=== PATIENT | male | born 1945 | race Caucasian/White ===

== ENCOUNTER 2020-02-12 09:50 | Outpatient (CLI) | payer MEDICARE ==
[2020-02-12 12:32] LABS: BASOPHILS % (AUTO) 0.6 % (0.0-2.0); EOSINOPHILS % (AUTO) 1.2 % (0.0-6.0); HEMATOCRIT 45 % (39-51); HEMOGLOBIN 15.1 g/dL (13.5-17.5); LYMPHOCYTES # (AUTO) 1.3 /CMM (0.8-4.8); LYMPHOCYTES % (AUTO) 23.3 % (20.0-44.0); MEAN CORPUSCULAR HGB CONC 34 g/dl (31.0-36.0); MEAN CORPUSCULAR VOLUME 97 fL (80-96); MONOCYTES # (AUTO) 0.8 /CMM (0.1-1.30); MONOCYTES % (AUTO) 13.7 % (2.0-12.0); NEUTROPHILS # (AUTO) 3.4 /CMM (1.8-8.9); NEUTROPHILS % (AUTO) 61.2 % (43.0-81.0); PLATELET COUNT (AUTO) 207 /CMM (150-450); RED BLOOD CELL COUNT(AUTO) 4.62 MIL/uL (4.5-6.0); WHITE BLOOD COUNT (AUTO) 5.6 K/uL (4.3-11.0)
[2020-02-12 12:51] LABS: APPEARANCE,URINE CLEAR (CLEAR); BILIRUBIN,URINE NEGATIVE (NEGATIVE); BLOOD, URINE NEGATIVE Ery/uL (NEGATIVE); COLOR,URINE YELLOW (YELLOW); KETONES,URINE NEGATIVE (NEGATIVE); LEUKOCYTE ESTERASE ,URINE NEGATIVE (NEGATIVE); NITRITE, URINE NEGATIVE (NEGATIVE); PH,URINE 5.5 (5.0-8.0); PROTEIN,URINE NEGATIVE (NEGATIVE); UGLUCOSE NEGATIVE (NEGATIVE); UROBILINOGEN,URINE 0.2 EU/dL (0.2)
[2020-02-12 12:55] LABS: FREE T4 (FREE THYROXINE) 0.98 ng/dL (0.76-1.46); PROSTATE SPECIFIC ANTIGEN SCR 1.8 ng/mL (0.00-4.00); THYROID STIMULATING HORMONE 1.171 uIU/mL (0.358-3.74)
[2020-02-12 13:14] LABS: ALBUMIN 3.9 g/dL (3.4-5.0); BILIRUBIN,TOTAL 0.5 mg/dL (0.2-1.0); CALCIUM, SERUM 9.1 mg/dL (8.5-10.1); POTASSIUM 3.8 mmol/L (3.5-5.1)
== END 2020-02-12 23:59 | disposition home or self-care (01) ==
LOC: MSC 09:50
PROVIDERS: ATTEND Internal Medicine
DX: M21.611 Bunion of right foot (principal); I10 Essential (primary) hypertension; F32.9 Major depressive disorder, single episode, unspecified; E78.5 Hyperlipidemia, unspecified; M19.90 Unspecified osteoarthritis, unspecified site; J30.2 Other seasonal allergic rhinitis; R32 Unspecified urinary incontinence; Z86.19 Personal history of other infectious and parasitic diseases; Z79.899 Other long term (current) drug therapy
CPT/HCPCS: 36415; 80053; 80061; 81001; 84153; 84439; 84443; 85025; G0463; 81000-TC

== ENCOUNTER 2020-05-13 10:55 | Outpatient (CLI) | payer MEDICARE | END 2020-05-13 23:59 | disposition home or self-care (01) | LOC: MSC 10:55 | PROVIDERS: ATTEND Internal Medicine | DX: R32 Unspecified urinary incontinence (principal); M21.611 Bunion of right foot; F32.9 Major depressive disorder, single episode, unspecified; I10 Essential (primary) hypertension; E78.5 Hyperlipidemia, unspecified; M19.90 Unspecified osteoarthritis, unspecified site; J30.2 Other seasonal allergic rhinitis; I00 Rheumatic fever without heart involvement ==

== ENCOUNTER 2020-08-28 13:02 | Outpatient (CLI) | payer MEDICARE, OTHER ==
[2020-08-28 15:01] LABS: BASOPHILS % (AUTO) 0.7 % (0.0-2.0); EOSINOPHILS % (AUTO) 1.4 % (0.0-6.0); HEMATOCRIT 43 % (39-51); HEMOGLOBIN 14.5 g/dL (13.5-17.5); LYMPHOCYTES # (AUTO) 1.4 /CMM (0.8-4.8); LYMPHOCYTES % (AUTO) 22.6 % (20.0-44.0); MEAN CORPUSCULAR HGB CONC 34 g/dl (31.0-36.0); MEAN CORPUSCULAR VOLUME 98 fL (80-96); MONOCYTES # (AUTO) 0.7 /CMM (0.1-1.30); MONOCYTES % (AUTO) 11.4 % (2.0-12.0); NEUTROPHILS # (AUTO) 3.9 /CMM (1.8-8.9); NEUTROPHILS % (AUTO) 63.9 % (43.0-81.0); PLATELET COUNT (AUTO) 240 /CMM (150-450); WHITE BLOOD COUNT (AUTO) 6.1 K/uL (4.3-11.0)
[2020-08-28 15:20] LABS: BILIRUBIN,URINE NEGATIVE (NEGATIVE); COLOR,URINE YELLOW (YELLOW); LEUKOCYTE ESTERASE ,URINE NEGATIVE (NEGATIVE); NITRITE, URINE NEGATIVE (NEGATIVE); PH,URINE 5.5 (5.0-8.0); PROTEIN,URINE NEGATIVE (NEGATIVE); UGLUCOSE NEGATIVE (NEGATIVE)
[2020-08-28 15:32] LABS: THYROID STIMULATING HORMONE 1.273 uIU/mL (0.358-3.74)
[2020-08-28 15:45] LABS: ALBUMIN 3.8 g/dL (3.4-5.0); BILIRUBIN,TOTAL 0.4 mg/dL (0.2-1.0); CALCIUM, SERUM 9.3 mg/dL (8.5-10.1); CREATININE 1.1 mg/dL (0.6-1.3); MAGNESIUM 2.1 mg/dL (1.8-2.4); PHOSPHORUS 3.5 mg/dL (2.5-4.9); POTASSIUM 4.4 mmol/L (3.5-5.1); TOTAL PROTEIN, SERUM 6.9 g/dL (6.4-8.2)
[2020-08-28 15:48] LABS: BACTERIA,URINE None seen /HPF (None Seen); MUCUS,URINE Few /LPF (None Seen); RBC,URINE 0-2 /HPF (0-2); SQUAMOUS EPITHELIAL CELL,UR 0-2 /HPF (None Seen); WBC,URINE 0-2 /HPF (0-3)
== END 2020-08-28 23:59 | disposition home or self-care (01) ==
LOC: MSC 13:02
PROVIDERS: ATTEND Internal Medicine
DX: R32 Unspecified urinary incontinence (principal); F32.9 Major depressive disorder, single episode, unspecified; M19.90 Unspecified osteoarthritis, unspecified site; I10 Essential (primary) hypertension; M21.619 Bunion of unspecified foot; E78.5 Hyperlipidemia, unspecified; J30.2 Other seasonal allergic rhinitis; Z79.899 Other long term (current) drug therapy; Z88.8 Allergy status to other drugs, medicaments and biological substances
CPT/HCPCS: 36415; 80053; 80061; 81001; 82607; 83735; 84100; 84443; 85025; 85652; G0463

== ENCOUNTER → 2020-09-07 | Outpatient (CLI) | payer MEDICARE, OTHER | END | disposition home or self-care (01) | LOC: MSC 16:00 | PROVIDERS: ATTEND Internal Medicine | DX: M19.90 Unspecified osteoarthritis, unspecified site (principal); R32 Unspecified urinary incontinence; F32.9 Major depressive disorder, single episode, unspecified; I10 Essential (primary) hypertension; M21.619 Bunion of unspecified foot; E78.5 Hyperlipidemia, unspecified; J30.2 Other seasonal allergic rhinitis; I00 Rheumatic fever without heart involvement; Z88.7 Allergy status to serum and vaccine ==

== ENCOUNTER 2020-11-05 09:30 | Outpatient (CLI) | payer MEDICARE, OTHER | END 2020-11-05 23:59 | disposition home or self-care (01) | LOC: MSC 09:30 | PROVIDERS: ATTEND Internal Medicine | DX: R25.2 Cramp and spasm (principal); M19.90 Unspecified osteoarthritis, unspecified site; R32 Unspecified urinary incontinence; F32.9 Major depressive disorder, single episode, unspecified; I10 Essential (primary) hypertension; M21.619 Bunion of unspecified foot; E78.5 Hyperlipidemia, unspecified; J30.2 Other seasonal allergic rhinitis; I00 Rheumatic fever without heart involvement; Z79.899 Other long term (current) drug therapy ==

== ENCOUNTER 2021-01-04 13:14 | Outpatient (CLI) | payer MEDICARE, OTHER | END 2021-01-04 23:59 | disposition home or self-care (01) | LOC: MSC 13:14 | PROVIDERS: ATTEND Internal Medicine | DX: Z51.89 Encounter for other specified aftercare (principal); R32 Unspecified urinary incontinence; F32.9 Major depressive disorder, single episode, unspecified; M19.90 Unspecified osteoarthritis, unspecified site; M21.619 Bunion of unspecified foot; E78.5 Hyperlipidemia, unspecified; I10 Essential (primary) hypertension; I01.9 Acute rheumatic heart disease, unspecified ==

== ENCOUNTER 2021-03-02 10:20 | Outpatient (CLI) | payer MEDICARE, OTHER | END 2021-03-02 23:59 | disposition home or self-care (01) | LOC: MSC 10:20 | PROVIDERS: ATTEND Internal Medicine | DX: Z51.89 Encounter for other specified aftercare (principal); F32.9 Major depressive disorder, single episode, unspecified; M19.90 Unspecified osteoarthritis, unspecified site; I10 Essential (primary) hypertension; Z87.448 Personal history of other diseases of urinary system; M21.619 Bunion of unspecified foot; E78.5 Hyperlipidemia, unspecified; J30.2 Other seasonal allergic rhinitis; I00 Rheumatic fever without heart involvement ==

== ENCOUNTER 2021-06-03 10:24 | Outpatient (CLI) | payer MEDICARE, OTHER ==
[2021-06-03 12:48] LABS: URINE TOTAL PROTEIN 10.5 mg/dL (0-11.9)
[2021-06-03 12:50] LABS: BASOPHILS % (AUTO) 0.2 % (0.0-2.0); HEMATOCRIT 45 % (39-51); HEMOGLOBIN 15.1 g/dL (13.5-17.5); LYMPHOCYTES # (AUTO) 1.1 K/uL (0.8-4.8); LYMPHOCYTES % (AUTO) 17.8 % (20.0-44.0); MEAN CORPUSCULAR HGB CONC 34 g/dl (31.0-36.0); MEAN CORPUSCULAR VOLUME 100 fL (80-96); MONOCYTES # (AUTO) 0.7 K/uL (0.1-1.30); MONOCYTES % (AUTO) 10.3 % (2.0-12.0); NEUTROPHILS # (AUTO) 4.6 K/uL (1.8-8.9); NEUTROPHILS % (AUTO) 70.7 % (43.0-81.0); PLATELET COUNT (AUTO) 276 K/uL (150-450); RED BLOOD CELL COUNT(AUTO) 4.48 MIL/uL (4.5-6.0); WHITE BLOOD COUNT (AUTO) 6.4 K/uL (4.3-11.0)
[2021-06-03 13:05] LABS: CHOLESTEROL 173 mg/dL (<200); FREE T4 (FREE THYROXINE) 0.91 ng/dL (0.76-1.46); HDL CHOLESTEROL 57 mg/dL (40-60); LDL 91 mg/dL (0-99); PROSTATE SPECIFIC ANTIGEN SCR 2.59 ng/mL (0.00-4.00); THYROID STIMULATING HORMONE 1.452 uIU/mL (0.358-3.74); TRIGLYCERIDES 147 mg/dL (30-150)
[2021-06-03 13:13] LABS: ALANINE AMINOTRANSFERASE 47 U/L (12-78); ALBUMIN 4.2 g/dL (3.4-5.0); ALKALINE PHOSPHATASE 86 U/L (46-116); ASPARTATE AMINOTRANSFERASE 13 U/L (15-37); BILIRUBIN,TOTAL 0.4 mg/dL (0.2-1.0); CALCIUM, SERUM 9.7 mg/dL (8.5-10.1); CARBON DIOXIDE 30 mmol/L (21-32); CHLORIDE 104 mmol/L (98-107); CREATININE 1.2 mg/dL (0.6-1.3); GLUCOSE 69 mg/dL (74-106); MAGNESIUM 2.8 mg/dL (1.8-2.4); PHOSPHORUS 3.2 mg/dL (2.5-4.9); SODIUM SERUM 141 mmol/L (136-145); TOTAL PROTEIN, SERUM 7.5 g/dL (6.4-8.2); UREA NITROGEN, BLOOD 22 mg/dL (7-18)
[2021-06-03 13:18] LABS: BILIRUBIN,URINE NEGATIVE (NEGATIVE); COLOR,URINE YELLOW (YELLOW); LEUKOCYTE ESTERASE ,URINE NEGATIVE (NEGATIVE); NITRITE, URINE NEGATIVE (NEGATIVE); PH,URINE 7.5 (5.0-8.0); PROTEIN,URINE NEGATIVE (NEGATIVE); UGLUCOSE NEGATIVE (NEGATIVE); UROBILINOGEN,URINE 0.2 EU/dL (0.2)
[2021-06-03 15:36] LABS: C-REACTIVE PROTEIN < 0.2 mg/dL (0.0-0.9)
== END 2021-06-03 23:59 | disposition home or self-care (01) ==
LOC: MSC 10:24
PROVIDERS: ATTEND Internal Medicine
DX: Z51.89 Encounter for other specified aftercare (principal); F32.A Depression, unspecified; M19.90 Unspecified osteoarthritis, unspecified site; I10 Essential (primary) hypertension; M21.619 Bunion of unspecified foot; E78.5 Hyperlipidemia, unspecified; J30.2 Other seasonal allergic rhinitis; I00 Rheumatic fever without heart involvement; Z00.00 Encounter for general adult medical examination without abnormal findings; Z79.899 Other long term (current) drug therapy
CPT/HCPCS: 36415; 80053; 80061; 81003; 82043; 82306; 82570; 82607; 82746; 83036; 83735; 84100; 84153; 84155; 84439; 84443; 85025; 85652; 86140; G0463

== ENCOUNTER 2021-06-08 11:30 | Outpatient (CLI) | payer MEDICARE, OTHER | END 2021-06-08 23:59 | disposition home or self-care (01) | LOC: MSC 11:30 | PROVIDERS: ATTEND Internal Medicine | DX: E83.42 Hypomagnesemia (principal); F32.A Depression, unspecified; M19.90 Unspecified osteoarthritis, unspecified site; I10 Essential (primary) hypertension; M21.619 Bunion of unspecified foot; E78.5 Hyperlipidemia, unspecified; J30.2 Other seasonal allergic rhinitis; I00 Rheumatic fever without heart involvement ==

== ENCOUNTER → 2021-08-17 | Outpatient (CLI) | payer MEDICARE, OTHER | END | disposition home or self-care (01) | LOC: MSC 14:00 | PROVIDERS: ATTEND Internal Medicine | DX: Z51.89 Encounter for other specified aftercare (principal); Z20.822 Contact with and (suspected) exposure to COVID-19; Z91.81 History of falling; E83.42 Hypomagnesemia; F32.A Depression, unspecified; M19.90 Unspecified osteoarthritis, unspecified site; I10 Essential (primary) hypertension; M21.619 Bunion of unspecified foot; E78.5 Hyperlipidemia, unspecified; J30.2 Other seasonal allergic rhinitis; I00 Rheumatic fever without heart involvement ==

== ENCOUNTER 2021-09-16 11:17 | Outpatient (CLI) | payer MEDICARE, OTHER | END 2021-09-16 23:59 | disposition home or self-care (01) | LOC: MSC 11:17 | PROVIDERS: ATTEND Internal Medicine | DX: R63.4 Abnormal weight loss (principal); Z68.22 Body mass index [BMI] 22.0-22.9, adult; H40.9 Unspecified glaucoma; Z91.81 History of falling; E83.42 Hypomagnesemia; F32.A Depression, unspecified; M19.90 Unspecified osteoarthritis, unspecified site; I10 Essential (primary) hypertension; M21.619 Bunion of unspecified foot; E78.5 Hyperlipidemia, unspecified; J30.2 Other seasonal allergic rhinitis; I00 Rheumatic fever without heart involvement ==

== ENCOUNTER 2022-01-06 10:34 | Outpatient (CLI) | payer MEDICARE, OTHER | END 2022-01-06 23:59 | disposition home or self-care (01) | LOC: MSC 10:34 | PROVIDERS: ATTEND Internal Medicine | DX: R01.1 Cardiac murmur, unspecified (principal); H40.9 Unspecified glaucoma; E83.42 Hypomagnesemia; F32.A Depression, unspecified; M19.90 Unspecified osteoarthritis, unspecified site; I10 Essential (primary) hypertension; M21.619 Bunion of unspecified foot; E78.5 Hyperlipidemia, unspecified; J30.2 Other seasonal allergic rhinitis; I00 Rheumatic fever without heart involvement; Z91.81 History of falling ==

== ENCOUNTER 2022-01-25 14:00 | Outpatient (CLI) | payer MEDICARE, OTHER | END 2022-01-25 23:59 | disposition home or self-care (01) | LOC: MSC 14:00 | PROVIDERS: ATTEND Internal Medicine | DX: R01.1 Cardiac murmur, unspecified (principal); I10 Essential (primary) hypertension; H40.9 Unspecified glaucoma; E83.42 Hypomagnesemia; F32.A Depression, unspecified; M19.90 Unspecified osteoarthritis, unspecified site; M21.619 Bunion of unspecified foot; E78.5 Hyperlipidemia, unspecified; J30.2 Other seasonal allergic rhinitis; I00 Rheumatic fever without heart involvement ==

== ENCOUNTER 2022-04-14 10:29 | Outpatient (CLI) | payer MEDICARE, OTHER | END 2022-04-14 23:59 | disposition home or self-care (01) | LOC: MSC 10:29 | PROVIDERS: ATTEND Internal Medicine | DX: R01.1 Cardiac murmur, unspecified (principal); R04.0 Epistaxis; I10 Essential (primary) hypertension; H40.9 Unspecified glaucoma; E83.42 Hypomagnesemia; F32.A Depression, unspecified; M19.90 Unspecified osteoarthritis, unspecified site; M21.619 Bunion of unspecified foot; E78.5 Hyperlipidemia, unspecified; J30.2 Other seasonal allergic rhinitis; I00 Rheumatic fever without heart involvement ==

== ENCOUNTER → 2022-06-09 | Outpatient (CLI) | payer MEDICARE, OTHER | END | disposition home or self-care (01) | LOC: MSC 09:12 | PROVIDERS: ATTEND Internal Medicine | DX: Z09 Encounter for follow-up examination after completed treatment for conditions other than malignant neoplasm (principal); R01.1 Cardiac murmur, unspecified; I10 Essential (primary) hypertension; H40.9 Unspecified glaucoma; E83.42 Hypomagnesemia; F32.A Depression, unspecified; M19.90 Unspecified osteoarthritis, unspecified site; M21.619 Bunion of unspecified foot; E78.5 Hyperlipidemia, unspecified; J30.2 Other seasonal allergic rhinitis; I00 Rheumatic fever without heart involvement; Z20.822 Contact with and (suspected) exposure to COVID-19 ==

== ENCOUNTER 2022-09-06 09:30 | Outpatient (CLI) | payer MEDICARE, OTHER | END 2022-09-06 23:59 | disposition home or self-care (01) | LOC: MSC 09:30 | PROVIDERS: ATTEND Internal Medicine | DX: U07.1 COVID-19 (principal); R01.1 Cardiac murmur, unspecified; I10 Essential (primary) hypertension; E83.42 Hypomagnesemia; F32.A Depression, unspecified; M19.90 Unspecified osteoarthritis, unspecified site; E78.5 Hyperlipidemia, unspecified; J30.2 Other seasonal allergic rhinitis; I00 Rheumatic fever without heart involvement ==

== ENCOUNTER 2022-09-27 10:37 | Outpatient (CLI) | payer MEDICARE, OTHER | END 2022-09-27 23:59 | disposition home or self-care (01) | LOC: MSC 10:37 | PROVIDERS: ATTEND Internal Medicine | DX: Z09 Encounter for follow-up examination after completed treatment for conditions other than malignant neoplasm (principal); I10 Essential (primary) hypertension; I01.8 Other acute rheumatic heart disease; E83.42 Hypomagnesemia; F32.9 Major depressive disorder, single episode, unspecified; M19.90 Unspecified osteoarthritis, unspecified site; E78.5 Hyperlipidemia, unspecified; J30.2 Other seasonal allergic rhinitis ==

== ENCOUNTER → 2022-11-23 | Outpatient (CLI) | payer MEDICARE, OTHER | END | disposition home or self-care (01) | LOC: MSC 15:00 | PROVIDERS: ATTEND Internal Medicine | DX: K63.5 Polyp of colon (principal); R01.1 Cardiac murmur, unspecified; I10 Essential (primary) hypertension; E83.42 Hypomagnesemia; F32.9 Major depressive disorder, single episode, unspecified; M19.90 Unspecified osteoarthritis, unspecified site; E78.5 Hyperlipidemia, unspecified; J30.2 Other seasonal allergic rhinitis; Z86.16 Personal history of COVID-19 ==